=== PATIENT | male | born 1985 | race Caucasian/White ===

== ENCOUNTER 2018-02-22 23:16 | Emergency (ER) | payer SELFPAY ==
[~2018-02-22] VITALS: Ht 180.3 cm; Wt 99.8 kg
[2018-02-22 23:16] VITALS: BP 162/85
--- NOTE | 2018-02-22 23:16 | NUR ---
PATIENT BIB [facility] TO ER CHAIR Jon[facility]
--- NOTE | 2018-02-22 23:21 | NUR ---
Dr. Puckett evaluating patient.
[2018-02-22 23:30] VITALS: BP 162/85
--- NOTE | 2018-02-22 23:30 | NUR ---
Patient discharged with v/s stable. Written and verbal after care instructions given and explained. Patient verbalized understanding. Police with in custody. All questions addressed prior to discharge. Advised to follow up with PMD.
== END 2018-02-22 23:30 ==
LOC: MED 23:16
DX: Z02.89 Encounter for other administrative examinations (principal); V29.9XXA Motorcycle rider (driver) (passenger) injured in unspecified traffic accident, initial encounter; Y93.89 Activity, other specified; Y92.89 Other specified places as the place of occurrence of the external cause; Y99.8 Other external cause status
CPT/HCPCS: 99283